=== PATIENT | male | born 1965 | race Caucasian/White ===

== ENCOUNTER 2022-12-23 22:18 | Inpatient (IN) ==
[2022-12-23] MEDS ORDERED: IOPAMIDOL 100 ML BOTTLE IV ONE (22:19)
[2022-12-23] MEDS ORDERED: LACTATED RINGERS 1,000 ML IV ONE (22:57)
[2022-12-23] MEDS ORDERED: LORazepam 2 MG/ML VIAL ONE (23:39)
[2022-12-24 00:08] LABS: POC Calcium, Ionized 1.03 (1.16-1.32); POC Creatinine 0.6 (0.6-1.2); POC Potassium 3.4 (3.3-5.1)
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
[2022-12-24 00:50] LABS: Basophils # (Auto) 0.04 K/mcL (0.00-0.30); Basophils % (Auto) 0.2 % (0.0-2.0); Eosinophils # (Auto) 0.01 K/mcL (0.00-0.70); Eosinophils % (Auto) 0 % (0.0-7.0); Hematocrit 46.1 % (40.1-51.0); Hemoglobin 15.7 g/dL (13.7-17.5); Lymphocytes # (Auto) 6.82 K/mcL (1.50-4.80); Lymphocytes % (Auto) 26.4 % (15.5-49.0); Mean Corpuscular HGB Conc 34.1 g/dL (31.0-36.0); Mean Platelet Volume 9.3 fL (8.8-12.5); Monocytes # (Auto) 1.86 K/mcL (0.10-0.90); Monocytes % (Auto) 7.2 % (1.0-12.0); Neutrophils % (Auto) 65.7 % (38.0-78.0); Platelet Count 248 K/mcL (140-440); RBC 5.12 M/mcL (4.63-6.08); Red Cell Distribution Width 12.2 % (11.5-14.5); WBC 25.9 K/mcL (4.5-11.0)
[2022-12-24 00:53] LABS: Appearance,Urine TURBID (Clear); Bacteria,Urine MANY /hpf (0); Bilirubin,Urine Negative (Negative); Color,Urine YELLOW; Culture Indicated,Urine yes; Glucose,Urine (UA) Negative (Negative); Ketones,Urine 20 mg/dL (Negative); Leukocyte Esterase,Urine 250 /uL (Negative); Mucus,Urine MANY /hpf; Nitrate,Urine Negative (Negative); Protein,Urine 100 mg/dL (Negative); Urine RBC 139 /hpf (0-3); Urine Squamous Epithelial Cell 0 /hpf (0-4); Urine WBC > 182 /hpf (0-4); Urobilinogen,Urine Negative
[2022-12-24 01:01] LABS: Amphetamine Screen,Urine None detected; Barbiturate Screen,Urine None detected; Benzodiazepines Screen,Urine None detected; Cannabinoid Screen,Urine None detected; Cocaine Screen,Urine None detected; Opiate Screen,Urine None detected; Oxycodone, Urine Screen None detected; Phencyclidine Screen,Urine None detected
[2022-12-24 01:01] LABS: Alcohol, Blood < 10.0 mg/dL; Alcohol,Blood < 0.010 gm/dL (<0.010)
[2022-12-24] MEDS ORDERED: LACTATED RINGERS 1,000 ML IV ONE (01:14)
[2022-12-24] MEDS ORDERED: VANCOMYCIN 1,000 MG in 0.9 % SODIUM CHLORIDE 250 ML IV ONE (01:15)
[2022-12-24 01:28] LABS: Creatine Kinase 4740 U/L (24-195)
[2022-12-24] MEDS: CEFEPIME 2 GM VIAL IV SCH ×2 (01:43→09:24)
[2022-12-24 04:16] LABS: Appearance,Urine CLOUDY (Clear); Bilirubin,Urine Negative (Negative); Color,Urine AMBER; Culture Indicated,Urine yes; Glucose,Urine (UA) Negative (Negative); Ketones,Urine 20 mg/dL (Negative); Leukocyte Esterase,Urine 500 /uL (Negative); Nitrate,Urine Negative (Negative); Protein,Urine 100 mg/dL (Negative); Urine RBC > 182 /hpf (0-1); Urine Squamous Epithelial Cell 2 /hpf (0-4); Urine Transitional Epi Cells < 1 /hpf (0-2); Urine WBC > 182 /hpf (0-4); Urobilinogen,Urine Negative
[2022-12-24 04:57] LABS: ALT/SGPT 36 U/L (<40); AST/SGOT 101 U/L (<40); Albumin 3.3 gm/dL (3.2-5.2); Alkaline Phosphatase 95 U/L (39-117); Bilirubin,Direct 0.2 mg/dL (<0.3); Bilirubin,Total 1.4 mg/dL (0.1-1.0); Globulin 2.5 gm/dL (2.2-3.7)
[2022-12-24 05:21] LABS: Creatine Kinase 4265 U/L (24-195)
[2022-12-24] MEDS ORDERED: ACETAMINOPHEN 325 MG TABLET PO PRN (06:47)
[2022-12-24] MEDS ORDERED: ONDANSETRON 4 MG/2 ML VIAL IV PRN ×2 (06:47→09:21)
[2022-12-24] MEDS ORDERED: 0.9 % SODIUM CHLORIDE 1,000 ML IV SCH (07:00)
--- NOTE | 2022-12-24 07:56 | Cat Scan Report ---
History: Altered mental status, fell out of chair with injury TECHNIQUE: The brain was imaged without contrast in axial plane at 2.5 mm intervals. Sagittal and coronal reformats were created. The radiation exposure was limited using dose reduction technology. FINDINGS: Patient was unable to follow instructions and remain motionless. There is motion artifact on several of the images. There is no evidence of intracranial hemorrhage, edema or mass effect. No infarct is detected. The ventricles are normal in size. There is no significant atrophy. No abnormal extra-axial fluid collection is present. No skull fracture is detected. IMPRESSION: No acute abnormality. However, the study is limited by motion artifact. Interpreted and Authenticated by: Ricco Medrano 12/24/22
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
--- NOTE | 2022-12-24 08:19 | Cat Scan Report ---
History: Altered mental status, fell, found down, paraplegic TECHNIQUE: Following injection of intravenous nonionic contrast the patient was imaged during the venous phase from the thoracic inlet through the symphysis pubis. Sagittal and coronal reformats were created along with axial MIPS images of the chest. The radiation exposure was limited using dose reduction technology. FINDINGS: Patient was unable to follow instructions and remain motionless during the exam CHEST: There is a small linear band of scar or discoid atelectasis in the lateral basal segment of the right lower lobe. No evidence of pulmonary infiltrate mass or emphysema. There is minor fibrosis in the anterior segment right upper lobe. No pleural effusion is present. There is no mediastinal hemorrhage. The heart is normal in size and contour. Aorta is normal in caliber and there is no significant plaque formation. Abdomen and pelvis: There is no evidence of lacerated organs or intra-abdominal hemorrhage. Beneath the capsule posteriorly in the spleen there is an ill-defined low-attenuation structure which measures 10 x 18 mm. This is unchanged from prior CT done on 12/29/18. There are several small noncalcified stones within the gallbladder. The gallbladder simpson not thickened or inflamed and the bile ducts are nondilated. The pancreas appears normal. The adrenals are normal. There may be a small cyst in left kidney. Kidneys are otherwise normal. Scattered plaques are present along the wall of a normal caliber abdominal aorta. The bowel pattern appears normal. There is some fecal impaction the sigmoid and rectum. Urinary bladder is decompressed by Bennett catheter. There are postoperative changes following prior spinal fusion from T8 through L2. There is an old mild wedge compression fracture at T11. Moderate disc space narrowing is present at L3-4. There is reactive sclerosis on both sides of the disc and gas and nucleus pulposus due to chronic degeneration. No new fracture is identified in the chest abdomen or pelvis. However, with the motion artifact, subtle fractures could be missed. IMPRESSION: No acute abnormality in the chest abdomen or pelvis Interpreted and Authenticated by: Ricco Medrano 12/24/22
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
[2022-12-24] MEDS ORDERED: IPRATROPIUM/ALBUTEROL 3 ML AMPUL.NEB NEB PRN (09:21)
[2022-12-24] MEDS ORDERED: KETOROLAC 30 MG/ML VIAL IV PRN (09:21)
[2022-12-24] MEDS ORDERED: cefTRIAXone 1 GM in DEXTROSE 5% IN WATER 50 ML IV SCH (09:21)
[2022-12-24] MEDS: ZINC SULFATE 50 MG CAPSULE PO SCH (10:09)
[2022-12-24] MEDS: cefTRIAXone 1 GM VIAL IV SCH (10:10)
[2022-12-24] MEDS: 0.9 % SODIUM CHLORIDE 1,000 ML IV SCH ×2 (10:11→16:29)
[2022-12-24] MEDS: ENOXAPARIN 40 MG/0.4 ML SYRINGE SQ SCH (10:13)
[2022-12-24] MEDS ORDERED: POLYETHYLENE GLYCOL 3350 17 GM PACKET PO PRN (11:22)
[2022-12-24] MEDS: 0.9 % SODIUM CHLORIDE 10 ML SYRINGE IV SCH ×2 (16:25→22:08)
[2022-12-24] MEDS: POTASSIUM CHLORIDE 20 MEQ TABLET PO SCH (16:31)
[2022-12-24] MEDS: LABETALOL 100 MG TABLET PO SCH (20:47)
[2022-12-24] MEDS: METHENAMINE MANDELATE 1 GM PO SCH (20:47)
[2022-12-24] MEDS: DOCUSATE SODIUM 100 MG CAPSULE PO SCH (20:47)
[2022-12-24] MEDS: SENNOSIDES 1 TABLET PO SCH (20:47)
[2022-12-24] MEDS: VALSARTAN 160MG PO SCH (20:48)
[2022-12-24] MEDS ORDERED: traZODone HCL 50 MG TABLET PO PRN (21:00)
[2022-12-24] MEDS ORDERED: LOSARTAN 50 MG TABLET PO SCH (21:00)
[2022-12-25] MEDS: 0.9 % SODIUM CHLORIDE 1,000 ML IV SCH ×5 (00:25→22:56)
[2022-12-25] MEDS: BACLOFEN 10 MG TABLET PO PRN ×2 (01:09→20:33)
[2022-12-25] MEDS: 0.9 % SODIUM CHLORIDE 10 ML SYRINGE IV SCH ×3 (05:52→20:24)
[2022-12-25 07:06] LABS: Basophils # (Auto) 0.05 K/mcL (0.00-0.30); Basophils % (Auto) 0.4 % (0.0-2.0); Eosinophils # (Auto) 0.26 K/mcL (0.00-0.70); Eosinophils % (Auto) 1.9 % (0.0-7.0); Hematocrit 40.9 % (40.1-51.0); Hemoglobin 13.8 g/dL (13.7-17.5); Lymphocytes % (Auto) 39.9 % (15.5-49.0); Mean Cell Volume 88.9 fL (80.0-100.0); Mean Corpuscular HGB Conc 33.7 g/dL (31.0-36.0); Mean Platelet Volume 9.5 fL (8.8-12.5); Monocytes % (Auto) 8.7 % (1.0-12.0); Neutrophils % (Auto) 48.8 % (38.0-78.0); Platelet Count 215 K/mcL (140-440); Red Cell Distribution Width 12.3 % (11.5-14.5); WBC 13.8 K/mcL (4.5-11.0)
[2022-12-25 07:30] LABS: ALT/SGPT 46 U/L (<40); AST/SGOT 87 U/L (<40); Albumin 3.3 gm/dL (3.2-5.2); Albumin/Globulin Ratio 1.4 (1.0-2.3); Alkaline Phosphatase 85 U/L (39-117); Bilirubin,Total 1.2 mg/dL (0.1-1.0); Blood Urea Nitrogen 10 mg/dL (6-20); Calcium 8.2 mg/dL (8.6-10.4); Carbon Dioxide 25 mmol/L (22-30); Chloride 106 mmol/L (96-108); Globulin 2.4 gm/dL (2.2-3.7); Glomerular Filtration Rate 118; Glucose 92 mg/dL (70-105)
[2022-12-25] MEDS: POTASSIUM CHLORIDE 20 MEQ TABLET PO SCH ×2 (07:39→17:35)
[2022-12-25 08:37] LABS: Creatine Kinase 2331 U/L (24-195)
[2022-12-25] MEDS ORDERED: D MANNOSE PO SCH (09:00)
[2022-12-25] MEDS ORDERED: amLODIPine 5 MG TABLET PO SCH (09:00)
[2022-12-25] MEDS ORDERED: CRANBERRY FRUIT PO SCH (09:00)
[2022-12-25] MEDS ORDERED: hydrALAZINE 20 MG/ML VIAL IV PRN (09:31)
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
[2022-12-25] MEDS: cefTRIAXone 1 GM VIAL IV SCH (09:38)
[2022-12-25] MEDS: VITAMIN D3 125 MCG TABLET PO SCH (09:38)
[2022-12-25] MEDS: MAGNESIUM OXIDE 400 MG TABLET PO SCH (09:38)
[2022-12-25] MEDS: DOCUSATE SODIUM 100 MG CAPSULE PO SCH ×2 (09:38→20:22)
[2022-12-25] MEDS: ZINC SULFATE 50 MG CAPSULE PO SCH (09:38)
[2022-12-25] MEDS: ENOXAPARIN 40 MG/0.4 ML SYRINGE SQ SCH (09:39)
[2022-12-25] MEDS: VALSARTAN 160MG PO SCH ×2 (09:39→20:23)
[2022-12-25] MEDS: METHENAMINE MANDELATE 1 GM PO SCH ×2 (09:39→20:22)
[2022-12-25] MEDS: Solifenacin 10 mg tablet PO SCH (09:39)
[2022-12-25] MEDS: LABETALOL 100 MG TABLET PO SCH ×2 (09:44→20:33)
[2022-12-25] MEDS: amLODIPine 5 MG TABLET PO SCH (09:53)
[2022-12-25] MEDS: GABAPENTIN 100 MG CAPSULE PO SCH ×3 (10:20→20:22)
--- NOTE | 2022-12-25 12:22 | EKG ---
[facility] Test Date: 2022-12-23 Pat Name: Doug Delarosa Department: ED Room: Gender: Male Dispatch Clerk: : [id number] Requested By: Constantine Albert Order Number: [id number] Reading MD: Isaac Key Measurements Intervals [place] Rate: 91 P: 80 GA: 134 QRS: 76 QRSD: 84 T: 51 QT: 383 QTc: 471 Interpretive Statements Sinus rhythm Minimal ST depression, inferior leads excess artifact Electronically Signed On 12-25-2022 12:22:27 PST by Isaac Key /[email or web address]/[email or web address]/[id number]/[id number]
[2022-12-25] MEDS ORDERED: GABAPENTIN 100 MG CAPSULE PO SCH (15:00)
[2022-12-25] MEDS: SENNOSIDES 1 TABLET PO SCH (20:22)
[2022-12-26] MEDS: 0.9 % SODIUM CHLORIDE 1,000 ML IV SCH ×2 (03:32→09:54)
[2022-12-26] MEDS: 0.9 % SODIUM CHLORIDE 10 ML SYRINGE IV SCH ×2 (05:42→12:35)
[2022-12-26 07:33] LABS: Basophils % (Auto) 0.6 % (0.0-2.0); Eosinophils % (Auto) 2.5 % (0.0-7.0); Hematocrit 39.7 % (40.1-51.0); Hemoglobin 13.8 g/dL (13.7-17.5); Lymphocytes % (Auto) 48.1 % (15.5-49.0); Mean Corpuscular HGB Conc 34.8 g/dL (31.0-36.0); Mean Platelet Volume 9.3 fL (8.8-12.5); Monocytes % (Auto) 7.6 % (1.0-12.0); Neutrophils % (Auto) 40.7 % (38.0-78.0); Platelet Count 203 K/mcL (140-440); RBC 4.46 M/mcL (4.63-6.08); Red Cell Distribution Width 12.2 % (11.5-14.5)
[2022-12-26 07:34] LABS: Basophils # (Auto) 0.07 K/mcL (0.00-0.30); Eosinophils # (Auto) 0.31 K/mcL (0.00-0.70); Lymphocytes # (Auto) 5.92 K/mcL (1.50-4.80); Monocytes # (Auto) 0.93 K/mcL (0.10-0.90)
[2022-12-26 08:17] LABS: Creatine Kinase 1026 U/L (24-195)
[2022-12-26 08:21] LABS: ALT/SGPT 44 U/L (<40); AST/SGOT 55 U/L (<40); Albumin 3.2 gm/dL (3.2-5.2); Albumin/Globulin Ratio 1.3 (1.0-2.3); Alkaline Phosphatase 77 U/L (39-117); Blood Urea Nitrogen 10 mg/dL (6-20); Calcium 8.2 mg/dL (8.6-10.4); Carbon Dioxide 23 mmol/L (22-30); Chloride 104 mmol/L (96-108); Globulin 2.4 gm/dL (2.2-3.7); Glomerular Filtration Rate 118; Glucose 87 mg/dL (70-105)
[2022-12-26] MEDS ORDERED: amLODIPine 5 MG TABLET PO SCH (09:00)
[2022-12-26 09:02] LABS: WBC 12.3 K/mcL (4.5-11.0)
[2022-12-26] MEDS: MAGNESIUM OXIDE 400 MG TABLET PO SCH (09:29)
[2022-12-26] MEDS: GABAPENTIN 100 MG CAPSULE PO SCH ×2 (09:29→15:59)
[2022-12-26] MEDS: VITAMIN D3 125 MCG TABLET PO SCH (09:30)
[2022-12-26] MEDS: DOCUSATE SODIUM 100 MG CAPSULE PO SCH (09:31)
[2022-12-26] MEDS: amLODIPine 5 MG TABLET PO SCH (09:32)
[2022-12-26] MEDS: LABETALOL 100 MG TABLET PO SCH (09:32)
[2022-12-26] MEDS: ZINC SULFATE 50 MG CAPSULE PO SCH (09:32)
[2022-12-26] MEDS: POTASSIUM CHLORIDE 20 MEQ TABLET PO SCH ×2 (09:33→17:24)
[2022-12-26] MEDS: ENOXAPARIN 40 MG/0.4 ML SYRINGE SQ SCH (09:33)
[2022-12-26] MEDS: Solifenacin 10 mg tablet PO SCH (10:05)
[2022-12-26] MEDS: cefTRIAXone 1 GM VIAL IV SCH (10:06)
[2022-12-26] MEDS: VALSARTAN 160MG PO SCH (10:06)
[2022-12-26] MEDS: METHENAMINE MANDELATE 1 GM PO SCH (10:06)
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
[2022-12-26] MEDS ORDERED: BISACODYL 10 MG SUPP.RECT PR ONE (11:17)
[2022-12-26] MEDS: BACLOFEN 10 MG TABLET PO PRN (17:26)
== END 2022-12-26 19:39 | disposition home or self-care (01) | DRG 871 ==
LOC: ED 22:18 → ICU 12-24 07:22 → MEDSUR 12-26 05:21
PROVIDERS: ADMIT Internal Medicine; ATTEND Internal Medicine

== ENCOUNTER 2025-05-15 13:52 | Inpatient (IN) ==
[2025-05-15] MEDS: ONDANSETRON 4 MG/2 ML VIAL IV ONE (14:27)
[2025-05-15] MEDS: 0.9 % SODIUM CHLORIDE 1,000 ML IV ONE ×2 (14:27→18:09)
[2025-05-15] MEDS: cefTRIAXone 1 GM VIAL IV ONE (14:53)
[2025-05-15] MEDS: POTASSIUM CHLORIDE 20 MEQ TABLET PO ONE (14:53)
[2025-05-15] MEDS ORDERED: MAGNESIUM SULFATE 2 GM/50 ML BAG IV PRN (17:54)
[2025-05-15] MEDS ORDERED: METOCLOPRAMIDE 10 MG/2 ML VIAL IV PRN (17:54)
[2025-05-15] MEDS ORDERED: CALCIUM CARBONATE 500 MG TAB.CHEW CHEWED PRN (17:54)
[2025-05-15] MEDS ORDERED: POLYETHYLENE GLYCOL 3350 17 GM PACKET PO PRN (17:54)
[2025-05-15] MEDS ORDERED: POTASSIUM CHLORIDE 20 MEQ TABLET PO PRN ×2 (17:54)
[2025-05-15] MEDS ORDERED: IPRATROPIUM/ALBUTEROL 3 ML AMPUL.NEB NEB PRN (17:54)
[2025-05-15] MEDS ORDERED: ACETAMINOPHEN 325 MG TABLET PO PRN (17:54)
[2025-05-15] MEDS: BISMUTH SUBSALICYLATE 15 ML ORAL.SUSP PO ONE (19:28)
[2025-05-15] MEDS: CEFEPIME 2 GM VIAL IV SCH (19:28)
[2025-05-15] MEDS: SENNOSIDES 1 TABLET PO PRN (21:13)
[2025-05-15] MEDS: DOCUSATE SODIUM 100 MG CAPSULE PO SCH (21:13)
[2025-05-15] MEDS: 0.9 % SODIUM CHLORIDE 10 ML SYRINGE IV SCH (21:14)
[2025-05-16] MEDS ORDERED: ENALAPRILAT 1.25 MG/ML VIAL IV PRN (07:58)
[2025-05-16] MEDS ORDERED: LABETALOL HCL 20 MG/4 ML VIAL IV PRN (07:58)
[2025-05-16] MEDS: ENOXAPARIN 40 MG/0.4 ML SYRINGE SQ SCH (08:37)
[2025-05-16 09:46] LABS: Basophils # (Auto) 0.02 K/mcL (0.00-0.30); Basophils % (Auto) 0.1 % (0.0-2.0); Eosinophils # (Auto) 0.01 K/mcL (0.00-0.70); Eosinophils % (Auto) 0.1 % (0.0-7.0); Hematocrit 38.6 % (40.1-51.0); Hemoglobin 12.8 g/dL (13.7-17.5); Lymphocytes # (Auto) 3.77 K/mcL (1.50-4.80); Lymphocytes % (Auto) 20.7 % (15.5-49.0); Mean Corpuscular HGB Conc 33.2 g/dL (31.0-36.0); Monocytes # (Auto) 1.55 K/mcL (0.10-0.90); Monocytes % (Auto) 8.5 % (1.0-12.0); Neutrophils % (Auto) 70.3 % (38.0-78.0); Platelet Count 248 K/mcL (140-440); RBC 4.34 M/mcL (4.63-6.08); WBC 18.2 K/mcL (4.5-11.0)
[2025-05-16 10:53] LABS: RBC Morphology NORMAL (Normal)
[2025-05-16 12:14] LABS: ALT/SGPT 8 U/L (<40); AST/SGOT 12 U/L (<40); Albumin 3.4 gm/dL (3.2-5.2); Albumin/Globulin Ratio 1.2 (1.0-2.3); Alkaline Phosphatase 85 U/L (39-117); Anion Gap 15.0 (8.0-16.0); Bilirubin,Direct 0.4 mg/dL (<0.3); Bilirubin,Total 0.9 mg/dL (0.1-1.0); Blood Urea Nitrogen 19 mg/dL (8-23); Calcium 8.6 mg/dL (8.6-10.4); Carbon Dioxide 21 mmol/L (22-30); Chloride 100 mmol/L (96-108); Globulin 2.8 gm/dL (2.2-3.7); Glucose 108 mg/dL (70-105); Phosphorous 2.6 mg/dL (2.5-4.5); Potassium 2.9 mmol/L (3.3-5.1); Sodium 136 mmol/L (133-145); Triglycerides 70 mg/dL (<150); Uric Acid 6.7 mg/dL (2.5-8.0)
[2025-05-16] MEDS: ONDANSETRON 4 MG/2 ML VIAL IV PRN (13:46)
[2025-05-16 19:42] LABS: Potassium 2.9 mmol/L (3.3-5.1)
[2025-05-16] MEDS: POTASSIUM CHLORIDE 40 MEQ in DEXTROSE 5% IN WATER 500 ML IV PRN (20:22)
[2025-05-16] MEDS: POTASSIUM CHLORIDE 20 MEQ/10 ML VIAL IV ONE (21:06)
[2025-05-16] MEDS: POTASSIUM CHLORIDE 20 MEQ TABLET PO ONE ×2 (21:13→23:23)
[2025-05-17 05:49] LABS: Basophils # (Auto) 0.04 K/mcL (0.00-0.30); Basophils % (Auto) 0.3 % (0.0-2.0); Eosinophils # (Auto) 0.24 K/mcL (0.00-0.70); Eosinophils % (Auto) 1.8 % (0.0-7.0); Hematocrit 36.9 % (40.1-51.0); Hemoglobin 12.5 g/dL (13.7-17.5); Lymphocytes # (Auto) 3.22 K/mcL (1.50-4.80); Lymphocytes % (Auto) 24.5 % (15.5-49.0); Mean Corpuscular HGB Conc 33.9 g/dL (31.0-36.0); Monocytes # (Auto) 1.27 K/mcL (0.10-0.90); Monocytes % (Auto) 9.7 % (1.0-12.0); Neutrophils % (Auto) 63.2 % (38.0-78.0); Platelet Count 211 K/mcL (140-440); RBC 4.25 M/mcL (4.63-6.08); WBC 13.1 K/mcL (4.5-11.0)
[2025-05-17 06:16] LABS: ALT/SGPT 14 U/L (<40); AST/SGOT 13 U/L (<40); Albumin 3.2 gm/dL (3.2-5.2); Albumin/Globulin Ratio 1.3 (1.0-2.3); Alkaline Phosphatase 84 U/L (39-117); Anion Gap 10.0 (8.0-16.0); Bilirubin,Direct 0.4 mg/dL (<0.3); Bilirubin,Total 0.9 mg/dL (0.1-1.0); Blood Urea Nitrogen 15 mg/dL (8-23); Calcium 8.3 mg/dL (8.6-10.4); Carbon Dioxide 24 mmol/L (22-30); Chloride 100 mmol/L (96-108); Globulin 2.5 gm/dL (2.2-3.7); Glucose 95 mg/dL (70-105); Phosphorous 2.2 mg/dL (2.5-4.5); Potassium 3.5 mmol/L (3.3-5.1); Sodium 134 mmol/L (133-145); Triglycerides 74 mg/dL (<150); Uric Acid 5.6 mg/dL (2.5-8.0)
[2025-05-17] MEDS: POTASSIUM PHOSPHATE 20 MEQ in DEXTROSE 5% IN WATER 250 ML IV ONE (11:08)
[2025-05-17] MEDS: BACLOFEN 10 MG TABLET PO PRN (21:31)
[2025-05-18 06:20] LABS: Basophils # (Auto) 0.05 K/mcL (0.00-0.30); Basophils % (Auto) 0.4 % (0.0-2.0); Eosinophils # (Auto) 0.62 K/mcL (0.00-0.70); Eosinophils % (Auto) 4.8 % (0.0-7.0); Hematocrit 38.3 % (40.1-51.0); Hemoglobin 13.1 g/dL (13.7-17.5); Lymphocytes # (Auto) 3.31 K/mcL (1.50-4.80); Lymphocytes % (Auto) 25.8 % (15.5-49.0); Mean Corpuscular HGB Conc 34.2 g/dL (31.0-36.0); Monocytes # (Auto) 1.03 K/mcL (0.10-0.90); Monocytes % (Auto) 8.0 % (1.0-12.0); Neutrophils % (Auto) 60.3 % (38.0-78.0); Platelet Count 224 K/mcL (140-440); RBC 4.43 M/mcL (4.63-6.08); WBC 12.9 K/mcL (4.5-11.0)
[2025-05-18 06:34] LABS: ALT/SGPT 19 U/L (<40); AST/SGOT 17 U/L (<40); Albumin 3.2 gm/dL (3.2-5.2); Albumin/Globulin Ratio 1.3 (1.0-2.3); Alkaline Phosphatase 83 U/L (39-117); Anion Gap 10.0 (8.0-16.0); Bilirubin,Direct 0.2 mg/dL (<0.3); Bilirubin,Total 0.6 mg/dL (0.1-1.0); Blood Urea Nitrogen 15 mg/dL (8-23); Calcium 8.5 mg/dL (8.6-10.4); Carbon Dioxide 24 mmol/L (22-30); Chloride 100 mmol/L (96-108); Globulin 2.5 gm/dL (2.2-3.7); Glucose 97 mg/dL (70-105); Phosphorous 3.2 mg/dL (2.5-4.5); Potassium 3.3 mmol/L (3.3-5.1); Sodium 134 mmol/L (133-145); Triglycerides 72 mg/dL (<150); Uric Acid 5.0 mg/dL (2.5-8.0)
[2025-05-18] MEDS: CIPROFLOXACIN 400 MG/200 ML BAG IV SCH (10:14)
[2025-05-18] MEDS: CEFEPIME 2 GM VIAL IV SCH (12:48)
[2025-05-19 06:07] LABS: Basophils # (Auto) 0.04 K/mcL (0.00-0.30); Basophils % (Auto) 0.3 % (0.0-2.0); Eosinophils # (Auto) 0.72 K/mcL (0.00-0.70); Eosinophils % (Auto) 6.0 % (0.0-7.0); Hematocrit 37.6 % (40.1-51.0); Hemoglobin 12.7 g/dL (13.7-17.5); Lymphocytes # (Auto) 3.44 K/mcL (1.50-4.80); Lymphocytes % (Auto) 28.5 % (15.5-49.0); Mean Corpuscular HGB Conc 33.8 g/dL (31.0-36.0); Monocytes # (Auto) 0.84 K/mcL (0.10-0.90); Monocytes % (Auto) 6.9 % (1.0-12.0); Neutrophils % (Auto) 57.6 % (38.0-78.0); Platelet Count 238 K/mcL (140-440); RBC 4.33 M/mcL (4.63-6.08); WBC 12.1 K/mcL (4.5-11.0)
[2025-05-19 06:34] LABS: ALT/SGPT 20 U/L (<40); AST/SGOT 14 U/L (<40); Albumin 3.2 gm/dL (3.2-5.2); Albumin/Globulin Ratio 1.3 (1.0-2.3); Alkaline Phosphatase 82 U/L (39-117); Anion Gap 11.0 (8.0-16.0); Bilirubin,Direct < 0.2 mg/dL (0-0.3); Bilirubin,Total 0.4 mg/dL (0.1-1.0); Blood Urea Nitrogen 15 mg/dL (8-23); Calcium 8.6 mg/dL (8.6-10.4); Carbon Dioxide 24 mmol/L (22-30); Chloride 100 mmol/L (96-108); Globulin 2.4 gm/dL (2.2-3.7); Glucose 108 mg/dL (70-105); Phosphorous 3.6 mg/dL (2.5-4.5); Potassium 3.2 mmol/L (3.3-5.1); Sodium 135 mmol/L (133-145); Triglycerides 84 mg/dL (<150); Uric Acid 4.5 mg/dL (2.5-8.0)
[2025-05-19] MEDS: POTASSIUM CHLORIDE 20 MEQ TABLET PO ONE ×2 (08:15→08:21)
[2025-05-19 08:45] VITALS: O2SAT 98
[2025-05-19] MEDS: CIPROFLOXACIN 500 MG TABLET PO SCH (11:14)
[2025-05-19 11:40] VITALS: TEMP 98.2
[2025-05-19 12:40] LABS: Potassium 3.9 mmol/L (3.3-5.1)
== END 2025-05-19 14:30 | disposition home health service (06) | DRG 698 ==
LOC: ED 13:52 → MEDSUR 17:39
PROVIDERS: ADMIT Internal Medicine; ATTEND Student in an Organized Health Care Education/Training Program